=== PATIENT | male | born 1960 | race Caucasian/White ===

== ENCOUNTER 2020-04-16 16:04 | Emergency (ER) | payer OTHER ==
[~2020-04-16] VITALS: Ht 175.3 cm; Wt 122.0 kg
--- NOTE | 2020-04-16 16:28 | NUR ---
First contact with pt. Pt c/o body aches, cough, GROVER x2 days. Pt speaking in full sentences, resp even and unlabored. Pt placed in gown, positioned for comfort in bed. Continuous heart, oxygen and BP monitors applied, all safety measures observed.
[2020-04-16] MEDS ORDERED: ACETAMINOPHEN 500 MG TABLET PO ONE (16:30)
[2020-04-16] MEDS ORDERED: LISI40TA PO (16:31)
[2020-04-16] MEDS ORDERED: HYDR25TA6 PO (16:31)
[2020-04-16] MEDS ORDERED: ACETAMINOPHEN 500 MG TABLET ONE (16:32)
--- NOTE | 2020-04-16 16:54 | NUR ---
Pt provided water to drink, denies other needs.
[2020-04-16 17:05] LABS: BASOPHILS % (AUTO) 0 % (0-1); EOSINOPHILS # (AUTO) 0.03 x10^3/uL (0-0.4); EOSINOPHILS % (AUTO) 0 % (1-7); LYMPHOCYTES # (AUTO) 0.69 x10^3/uL (1-3.4); LYMPHOCYTES % (AUTO) 9 % (22-44); MD NO; MEAN CORPUSCULAR HGB CONC 32.3 g/dL (33.2-36.2); MEAN CORPUSCULAR VOLUME 83.7 fL (81-97); MEAN PLATELET VOLUME 10.6 fL (7.4-10.4); MONOCYTES # (AUTO) 0.23 x10^3/uL (0.2-0.8); MONOCYTES % (AUTO) 3 % (2-9); NEUTROPHILS # (AUTO) 6.71 x10^3/uL (1.8-6.8); NEUTROPHILS % (AUTO) 88 % (42-75); PLATELET COUNT 158 x10^3/uL (130-400); RED BLOOD COUNT 5.84 x10^6/uL (4.38-5.82); RED CELL DISTRIBUTION WIDTH 16.4 % (9.4-14.8)
[2020-04-16 17:15] LABS: ANION GAP 7 mmol/L (5-15); CALCIUM 8.7 mg/dL (8.5-10.1); CHLORIDE 104 mmol/L (98-107); CREATININE 1.41 mg/dL (0.7-1.3)
[2020-04-16 17:43] VITALS: BP 113/54
--- NOTE | 2020-04-16 17:43 | NUR ---
Pt reports he is feeling much better after Tylenol. Pt rates pain 2/10. Pt educated on alternating Tylenol and Motrin for fever and pain control. Pt verbalizes understanding.
--- NOTE | 2020-04-16 18:44 | NUR ---
Patient/Caregiver given discharge instructions and they have confirmed that they understand the instructions. Patient ambulatory with steady gait.
== END 2020-04-16 18:45 | disposition home or self-care (01) ==
LOC: ED 18:40
DX: J06.9 Acute upper respiratory infection, unspecified (principal); R06.00 Dyspnea, unspecified; R94.31 Abnormal electrocardiogram [ECG] [EKG]
CPT/HCPCS: 36415; 71045; 80048; 85025; 93005; 99285

== ENCOUNTER 2020-04-20 13:17 | Inpatient (IN) | payer OTHER ==
[~2020-04-20] VITALS: Ht 175.3 cm; Wt 126.1 kg
[~2020-04-20 13:17] MED LIST: HYDR25TA6 PO; LISI40TA PO
--- NOTE | 2020-04-20 13:26 | NUR ---
THIS IS A 59 YEAR OLD MALE CAME BACK IN FOR SOB, RESP ISSUES, FEVER AND CHILLS. FEVER ON AND OFF FOR 4 DAYS, SAT DECREASED 83%, RA. PT PLACED ON ECONOMICS LECTURER SINUS, SP02 AT 86%,. PLACED ON OXYGEN AT 2LNC UP TO 98%, AND CYCLE VS.
--- NOTE | 2020-04-20 14:25 | NUR ---
REPORT TO AMAURY GARCIA, PLAN OF CARE DISCUSSED
[2020-04-20] MEDS ORDERED: SODIUM CHLORIDE FLUSH 10ML SYR IVF ONE (14:30)
[2020-04-20] MEDS ORDERED: SODIUM CHLORIDE 0.9% 1,000ML IVBOLUS ONE (14:30)
[2020-04-20 14:33] LABS: BASOPHILS # (AUTO) 0.01 x10^3/uL (0-0.1); BASOPHILS % (AUTO) 0 % (0-1); EOSINOPHILS % (AUTO) 0 % (1-7); LYMPHOCYTES # (AUTO) 1.13 x10^3/uL (1-3.4); LYMPHOCYTES % (AUTO) 22 % (22-44); MD NO; MEAN CORPUSCULAR HEMOGLOBIN 26.9 pg (27.5-34.5); MEAN CORPUSCULAR HGB CONC 31.5 g/dL (33.2-36.2); MEAN CORPUSCULAR VOLUME 85.4 fL (81-97); MEAN PLATELET VOLUME 10.9 fL (7.4-10.4); MONOCYTES # (AUTO) 0.39 x10^3/uL (0.2-0.8); MONOCYTES % (AUTO) 8 % (2-9); NEUTROPHILS # (AUTO) 3.66 x10^3/uL (1.8-6.8); NEUTROPHILS % (AUTO) 71 % (42-75); PLATELET COUNT 139 x10^3/uL (130-400); RED BLOOD COUNT 6.14 x10^6/uL (4.38-5.82); RED CELL DISTRIBUTION WIDTH 17.3 % (9.4-14.8)
[2020-04-20 14:45] LABS: ALBUMIN 3.6 g/dL (3.4-5.0); ANION GAP 4 mmol/L (5-15); CALCIUM 9.1 mg/dL (8.5-10.1); CHLORIDE 104 mmol/L (98-107)
[2020-04-20] MEDS ORDERED: CEFTRIAXONE PMX 1GM/50ML 50 ML ONE (16:14)
[2020-04-20] MEDS ORDERED: ONDANSETRON 2MG/ML, 2ML IVPush PRN (16:30)
[2020-04-20] MEDS ORDERED: TEMAZEPAM 15 MG CAPSULE PO PRN (16:30)
[2020-04-20] MEDS ORDERED: ENOXAPARIN 40 MG/0.4 ML SQ SCH (16:30)
[2020-04-20] MEDS ORDERED: LABETALOL 5MG/ML, 20ML IVPush PRN (16:30)
[2020-04-20] MEDS ORDERED: CEFTRIAXONE PMX 2GM/50ML 50 ML IV SCH (16:30)
[2020-04-20] MEDS ORDERED: ONDANSETRON ODT 4 MG PO PRN (16:30)
[2020-04-20] MEDS ORDERED: ACETAMINOPHEN 325 MG TABLET PO PRN (16:30)
--- NOTE | 2020-04-20 16:40 | NUR ---
walked pt back and took pts ekg and vitals.
[2020-04-20 16:54] LABS: C-REACTIVE PROTEIN, QUANT 2.2 mg/dL (0.02-0.49)
[2020-04-20] MEDS ORDERED: AZITHROMYCIN 500 MG in SODIUM CHLORIDE 0.9% 250 ML IV ONE (17:00)
[2020-04-20] MEDS: AZITHROMYCIN 500 MG in SODIUM CHLORIDE 0.9% 250 ML IV SCH (17:12)
[2020-04-20] MEDS ORDERED: ENOXAPARIN 40 MG/0.4 ML ONE (17:27)
[2020-04-20] MEDS ORDERED: CEFTRIAXONE PMX 1GM/50ML 50 ML IV ONE ×2 (18:00→19:45)
[2020-04-20] MEDS ORDERED: ENOXAPARIN 80 MG/0.8 ML SQ ONE (19:15)
[2020-04-20] MEDS ORDERED: [UNRECOGNIZED DRUG - REMARK] XX ONE (19:45)
[2020-04-20] MEDS: ASCORBATE SODIUM 3,000 MG in SODIUM CHLORIDE 0.9% 250 ML IVPB SCH (20:28)
[2020-04-20] MEDS: MELATONIN 5 MG TABLET PO SCH (20:31)
[2020-04-20 20:35] VITALS: BP 144/82
[2020-04-20 22:24] LABS: TROPONIN I 0.071 ng/mL (0.000-0.045)
[2020-04-20] MEDS ORDERED: GUAIFENESIN/COD200MG-20MG/10ML LIQUID PO PRN (23:30)
[2020-04-21 00:20] VITALS: BP 146/84
[2020-04-21] MEDS: ASCORBATE SODIUM 3,000 MG in SODIUM CHLORIDE 0.9% 250 ML IVPB SCH ×4 (02:10→21:49)
[2020-04-21 05:42] LABS: BASOPHILS # (AUTO) 0.01 x10^3/uL (0-0.1); BASOPHILS % (AUTO) 0 % (0-1); EOSINOPHILS # (AUTO) 0.02 x10^3/uL (0-0.4); EOSINOPHILS % (AUTO) 1 % (1-7); LYMPHOCYTES # (AUTO) 1.38 x10^3/uL (1-3.4); LYMPHOCYTES % (AUTO) 33 % (22-44); MD NO; MEAN CORPUSCULAR HEMOGLOBIN 27.3 pg (27.5-34.5); MEAN CORPUSCULAR HGB CONC 32.4 g/dL (33.2-36.2); MEAN CORPUSCULAR VOLUME 84.2 fL (81-97); MEAN PLATELET VOLUME 10.6 fL (7.4-10.4); MONOCYTES # (AUTO) 0.29 x10^3/uL (0.2-0.8); MONOCYTES % (AUTO) 7 % (2-9); NEUTROPHILS % (AUTO) 59 % (42-75); PLATELET COUNT 125 x10^3/uL (130-400); RED BLOOD COUNT 5.56 x10^6/uL (4.38-5.82); RED CELL DISTRIBUTION WIDTH 17.5 % (9.4-14.8)
[2020-04-21 05:52] LABS: ANION GAP 5 mmol/L (5-15); CALCIUM 8.4 mg/dL (8.5-10.1); CHLORIDE 104 mmol/L (98-107)
[2020-04-21 05:56] LABS: CREATININE 1.27 mg/dL (0.7-1.3); TROPONIN I 0.056 ng/mL (0.000-0.045)
[2020-04-21 08:23] VITALS: BP 115/61
[2020-04-21] MEDS ORDERED: DEXAMETHASONE 4 MG TABLET ONE (08:45)
[2020-04-21] MEDS: DEXAMETHASONE 1 MG TABLET PO SCH (09:00)
[2020-04-21] MEDS: CHOLECALCIFEROL 1,000 UNIT TABLET PO SCH (09:17)
[2020-04-21] MEDS: ENOXAPARIN 120MG/0.8ML SQ SCH ×2 (09:18→20:12)
[2020-04-21] MEDS: HYDROCHLOROTHIAZIDE 25 MG TABLET PO SCH (09:18)
[2020-04-21] MEDS: ZINC SULFATE 220 MG CAPSULE PO SCH (09:18)
[2020-04-21] MEDS: LISINOPRIL 40 MG TABLET PO SCH (09:18)
[2020-04-21] MEDS: POTASSIUM CHLORIDE 20 MEQ TAB.ER.PRT PO SCH (09:18)
[2020-04-21 09:21] LABS: ALBUMIN 3.3 g/dL (3.4-5.0); BILIRUBIN, DIRECT 0.1 mg/dL (0.1-0.2)
[2020-04-21 09:22] LABS: BILIRUBIN,INDIRECT 0.2 mg/dL (0.0-2.0); BILIRUBIN,TOTAL 0.3 mg/dL (0.2-1.0)
[2020-04-21] MEDS ORDERED: INSTRUCTION SEE COMMENTS XX ONE (10:00)
[2020-04-21] MEDS ORDERED: REMDESIVIR 200 MG in SODIUM CHLORIDE 0.9% 250 ML IVPB ONE (10:30)
[2020-04-21 12:13] VITALS: BP 146/84
[2020-04-21] MEDS: CEFTRIAXONE PMX 2GM/50ML 50 ML IV SCH (18:42)
[2020-04-21 19:09] VITALS: BP 155/88
[2020-04-21] MEDS: MELATONIN 5 MG TABLET PO SCH (20:12)
[2020-04-21] MEDS: AZITHROMYCIN 500 MG in SODIUM CHLORIDE 0.9% 250 ML IV SCH (20:12)
[2020-04-22 02:00] VITALS: BP 158/86
[2020-04-22] MEDS: ASCORBATE SODIUM 3,000 MG in SODIUM CHLORIDE 0.9% 250 ML IVPB SCH ×3 (02:25→20:21)
[2020-04-22 04:12] VITALS: BP 158/86
[2020-04-22 05:12] LABS: ALBUMIN 3.2 g/dL (3.4-5.0); CALCIUM 8.5 mg/dL (8.5-10.1); CHLORIDE 105 mmol/L (98-107)
[2020-04-22 05:18] LABS: ALANINE AMINOTRANSFERASE 162 U/L (12-78); ALKALINE PHOSPHATASE 50 U/L (45-117); ANION GAP 6 mmol/L (5-15); BILIRUBIN,TOTAL 0.3 mg/dL (0.2-1.0); CREATININE 1.13 mg/dL (0.7-1.3); TOTAL PROTEIN 6.9 g/dL (6.4-8.2)
[2020-04-22 08:39] VITALS: BP 151/88
[2020-04-22] MEDS: CHOLECALCIFEROL 1,000 UNIT TABLET PO SCH (08:46)
[2020-04-22] MEDS: HYDROCHLOROTHIAZIDE 25 MG TABLET PO SCH (08:46)
[2020-04-22] MEDS: ENOXAPARIN 120MG/0.8ML SQ SCH ×2 (08:46→20:22)
[2020-04-22] MEDS: POTASSIUM CHLORIDE 20 MEQ TAB.ER.PRT PO SCH (08:46)
[2020-04-22] MEDS: ZINC SULFATE 220 MG CAPSULE PO SCH (08:46)
[2020-04-22] MEDS: DEXAMETHASONE 1 MG TABLET PO SCH (08:47)
[2020-04-22] MEDS: LISINOPRIL 40 MG TABLET PO SCH (08:56)
[2020-04-22 15:20] VITALS: BP 151/81
[2020-04-22] MEDS: REMDESIVIR 100 MG in SODIUM CHLORIDE 0.9% 250 ML IVPB SCH (15:56)
[2020-04-22] MEDS: CEFTRIAXONE PMX 2GM/50ML 50 ML IV SCH (18:04)
[2020-04-22 18:34] VITALS: BP 144/81
[2020-04-22] MEDS: AZITHROMYCIN 500 MG in SODIUM CHLORIDE 0.9% 250 ML IV SCH (18:39)
[2020-04-22] MEDS: MELATONIN 5 MG TABLET PO SCH (20:21)
[2020-04-23 00:27] VITALS: BP 143/78
[2020-04-23] MEDS: ASCORBATE SODIUM 3,000 MG in SODIUM CHLORIDE 0.9% 250 ML IVPB SCH ×3 (02:26→20:54)
[2020-04-23 05:40] LABS: ALANINE AMINOTRANSFERASE 193 U/L (12-78); ANION GAP 5 mmol/L (5-15); CALCIUM 8.6 mg/dL (8.5-10.1); CHLORIDE 106 mmol/L (98-107); CREATININE 1.15 mg/dL (0.7-1.3)
[2020-04-23 05:43] LABS: ALKALINE PHOSPHATASE 49 U/L (45-117); BILIRUBIN,TOTAL 0.2 mg/dL (0.2-1.0); TOTAL PROTEIN 6.7 g/dL (6.4-8.2)
[2020-04-23 09:50] VITALS: BP 153/87
[2020-04-23] MEDS: ENOXAPARIN 120MG/0.8ML SQ SCH ×2 (09:53→20:03)
[2020-04-23] MEDS: POTASSIUM CHLORIDE 20 MEQ TAB.ER.PRT PO SCH (09:53)
[2020-04-23] MEDS: HYDROCHLOROTHIAZIDE 25 MG TABLET PO SCH (09:53)
[2020-04-23] MEDS: DEXAMETHASONE 1 MG TABLET PO SCH (09:53)
[2020-04-23] MEDS: LISINOPRIL 40 MG TABLET PO SCH (09:54)
[2020-04-23] MEDS: CHOLECALCIFEROL 1,000 UNIT TABLET PO SCH (09:54)
[2020-04-23] MEDS: ZINC SULFATE 220 MG CAPSULE PO SCH (09:54)
[2020-04-23 12:32] VITALS: BP 135/73
[2020-04-23] MEDS: REMDESIVIR 100 MG in SODIUM CHLORIDE 0.9% 250 ML IVPB SCH (17:26)
[2020-04-23 19:12] VITALS: BP 151/83
[2020-04-23] MEDS: THIAMINE 100MG TABLET PO SCH (20:03)
[2020-04-23] MEDS: MELATONIN 5 MG TABLET PO SCH (20:03)
[2020-04-23] MEDS: CEFTRIAXONE PMX 2GM/50ML 50 ML IV SCH (20:05)
[2020-04-23 22:13] VITALS: BP 150/87
[2020-04-23] MEDS: AZITHROMYCIN 500 MG in SODIUM CHLORIDE 0.9% 250 ML IV SCH (23:12)
[2020-04-24] MEDS: ASCORBATE SODIUM 3,000 MG in SODIUM CHLORIDE 0.9% 250 ML IVPB SCH ×4 (03:03→21:24)
[2020-04-24 03:08] VITALS: BP 143/73
[2020-04-24 05:01] LABS: BASOPHILS # (AUTO) 0.02 x10^3/uL (0-0.1); BASOPHILS % (AUTO) 0 % (0-1); EOSINOPHILS # (AUTO) 0.02 x10^3/uL (0-0.4); EOSINOPHILS % (AUTO) 0 % (1-7); LYMPHOCYTES # (AUTO) 1.09 x10^3/uL (1-3.4); LYMPHOCYTES % (AUTO) 13 % (22-44); MD NO; MEAN CORPUSCULAR HEMOGLOBIN 27.4 pg (27.5-34.5); MEAN CORPUSCULAR HGB CONC 32.5 g/dL (33.2-36.2); MEAN CORPUSCULAR VOLUME 84.4 fL (81-97); MEAN PLATELET VOLUME 11.3 fL (7.4-10.4); MONOCYTES # (AUTO) 0.64 x10^3/uL (0.2-0.8); MONOCYTES % (AUTO) 8 % (2-9); NEUTROPHILS # (AUTO) 6.65 x10^3/uL (1.8-6.8); NEUTROPHILS % (AUTO) 79 % (42-75); PLATELET COUNT 155 x10^3/uL (130-400); RED BLOOD COUNT 5.76 x10^6/uL (4.38-5.82); RED CELL DISTRIBUTION WIDTH 16.7 % (9.4-14.8)
[2020-04-24 05:08] LABS: INTERNATIONAL NORMALIZED RATIO 1.12 (0.93-1.1); PROTHROMBIN TIME 11.6 Seconds (9.6-11.5)
[2020-04-24 05:14] LABS: ALANINE AMINOTRANSFERASE 188 U/L (12-78); ANION GAP 5 mmol/L (5-15); CALCIUM 7.8 mg/dL (8.5-10.1); CHLORIDE 106 mmol/L (98-107)
[2020-04-24 05:19] LABS: ALKALINE PHOSPHATASE 45 U/L (45-117); BILIRUBIN,TOTAL 0.3 mg/dL (0.2-1.0); CREATININE 1.05 mg/dL (0.7-1.3); TOTAL PROTEIN 6.5 g/dL (6.4-8.2); TROPONIN I < 0.015 ng/mL (0.000-0.045)
[2020-04-24 07:10] VITALS: BP 148/75
[2020-04-24] MEDS: ENOXAPARIN 120MG/0.8ML SQ SCH ×2 (09:29→20:45)
[2020-04-24] MEDS: CHOLECALCIFEROL 5,000u TAB PO SCH (09:29)
[2020-04-24] MEDS: ZINC SULFATE 220 MG CAPSULE PO SCH (09:29)
[2020-04-24] MEDS: DEXAMETHASONE 1 MG TABLET PO SCH (09:30)
[2020-04-24] MEDS: THIAMINE 100MG TABLET PO SCH ×2 (09:30→20:45)
[2020-04-24] MEDS: LISINOPRIL 40 MG TABLET PO SCH (09:30)
[2020-04-24] MEDS: HYDROCHLOROTHIAZIDE 25 MG TABLET PO SCH (09:30)
[2020-04-24 13:51] VITALS: BP 156/78
[2020-04-24] MEDS: REMDESIVIR 100 MG in SODIUM CHLORIDE 0.9% 250 ML IVPB SCH (18:32)
[2020-04-24 18:38] VITALS: BP 153/83
[2020-04-24] MEDS: CEFTRIAXONE PMX 2GM/50ML 50 ML IV SCH (20:43)
[2020-04-24] MEDS: MELATONIN 5 MG TABLET PO SCH (20:45)
[2020-04-24] MEDS: AZITHROMYCIN 500 MG in SODIUM CHLORIDE 0.9% 250 ML IV SCH (23:25)
[2020-04-25 00:45] VITALS: BP 148/78
[2020-04-25] MEDS: ASCORBATE SODIUM 3,000 MG in SODIUM CHLORIDE 0.9% 250 ML IVPB SCH ×3 (03:03→21:01)
[2020-04-25 05:20] LABS: MEAN CORPUSCULAR HEMOGLOBIN 27.1 pg (27.5-34.5); MEAN CORPUSCULAR VOLUME 84.8 fL (81-97); MEAN PLATELET VOLUME 11.9 fL (7.4-10.4); PLATELET COUNT 170 x10^3/uL (130-400); RED CELL DISTRIBUTION WIDTH 16.3 % (9.4-14.8)
[2020-04-25 05:27] LABS: ALBUMIN 2.9 g/dL (3.4-5.0); ANION GAP 3 mmol/L (5-15); CALCIUM 7.9 mg/dL (8.5-10.1); CHLORIDE 106 mmol/L (98-107)
[2020-04-25 05:31] LABS: ALANINE AMINOTRANSFERASE 252 U/L (12-78); ALKALINE PHOSPHATASE 46 U/L (45-117); BILIRUBIN,TOTAL 0.3 mg/dL (0.2-1.0); CREATININE 1.19 mg/dL (0.7-1.3); TOTAL PROTEIN 6.3 g/dL (6.4-8.2)
[2020-04-25 06:28] LABS: BASOPHILS # (AUTO) 0.04 x10^3/uL (0-0.1); BASOPHILS % (AUTO) 0 % (0-1); EOSINOPHILS # (AUTO) 0.07 x10^3/uL (0-0.4); EOSINOPHILS % (AUTO) 1 % (1-7); LYMPHOCYTES # (AUTO) 1.23 x10^3/uL (1-3.4); LYMPHOCYTES % (AUTO) 13 % (22-44); MD SCAN; MONOCYTES # (AUTO) 0.76 x10^3/uL (0.2-0.8); MONOCYTES % (AUTO) 8 % (2-9); NEUTROPHILS % (AUTO) 78 % (42-75)
[2020-04-25 07:16] VITALS: BP 160/8
[2020-04-25 08:04] VITALS: BP 158/81
[2020-04-25] MEDS: LISINOPRIL 40 MG TABLET PO SCH (08:09)
[2020-04-25] MEDS: DEXAMETHASONE 1 MG TABLET PO SCH (08:09)
[2020-04-25] MEDS: HYDROCHLOROTHIAZIDE 25 MG TABLET PO SCH (08:09)
[2020-04-25] MEDS: ENOXAPARIN 120MG/0.8ML SQ SCH ×2 (08:09→21:01)
[2020-04-25] MEDS: CHOLECALCIFEROL 5,000u TAB PO SCH (08:10)
[2020-04-25] MEDS: ZINC SULFATE 220 MG CAPSULE PO SCH (08:10)
[2020-04-25] MEDS: THIAMINE 100MG TABLET PO SCH ×2 (08:10→21:02)
[2020-04-25 13:48] VITALS: BP 169/94
[2020-04-25] MEDS: REMDESIVIR 100 MG in SODIUM CHLORIDE 0.9% 250 ML IVPB SCH (18:09)
[2020-04-25] MEDS: CEFTRIAXONE PMX 2GM/50ML 50 ML IV SCH (20:23)
[2020-04-25 20:28] VITALS: BP 161/78
[2020-04-25] MEDS: MELATONIN 5 MG TABLET PO SCH (21:01)
[2020-04-25] MEDS: AZITHROMYCIN 500 MG in SODIUM CHLORIDE 0.9% 250 ML IV SCH (23:04)
[2020-04-26] VITALS (8 sets, daily range): BP systolic 137–185; BP diastolic 69–94
[2020-04-26] MEDS: ASCORBATE SODIUM 3,000 MG in SODIUM CHLORIDE 0.9% 250 ML IVPB SCH ×3 (02:49→18:03)
[2020-04-26 06:16] LABS: BASOPHILS # (AUTO) 0.01 x10^3/uL (0-0.1); BASOPHILS % (AUTO) 0 % (0-1); EOSINOPHILS # (AUTO) 0.01 x10^3/uL (0-0.4); EOSINOPHILS % (AUTO) 0 % (1-7); LYMPHOCYTES # (AUTO) 1.49 x10^3/uL (1-3.4); LYMPHOCYTES % (AUTO) 13 % (22-44); MD NO; MEAN CORPUSCULAR HEMOGLOBIN 27.1 pg (27.5-34.5); MEAN CORPUSCULAR HGB CONC 32.2 g/dL (33.2-36.2); MEAN CORPUSCULAR VOLUME 84.4 fL (81-97); MEAN PLATELET VOLUME 11.6 fL (7.4-10.4); MONOCYTES # (AUTO) 0.88 x10^3/uL (0.2-0.8); MONOCYTES % (AUTO) 8 % (2-9); NEUTROPHILS # (AUTO) 9.27 x10^3/uL (1.8-6.8); NEUTROPHILS % (AUTO) 80 % (42-75); PLATELET COUNT 184 x10^3/uL (130-400); RED BLOOD COUNT 6.25 x10^6/uL (4.38-5.82)
[2020-04-26 06:25] LABS: ANION GAP 4 mmol/L (5-15); CALCIUM 8.3 mg/dL (8.5-10.1); CHLORIDE 105 mmol/L (98-107)
[2020-04-26 06:28] LABS: ALANINE AMINOTRANSFERASE 238 U/L (12-78); ALKALINE PHOSPHATASE 50 U/L (45-117); BILIRUBIN,TOTAL 0.4 mg/dL (0.2-1.0); CREATININE 1.17 mg/dL (0.7-1.3); TOTAL PROTEIN 6.6 g/dL (6.4-8.2)
[2020-04-26] MEDS: THIAMINE 100MG TABLET PO SCH ×2 (10:37→20:27)
[2020-04-26] MEDS: DEXAMETHASONE 1 MG TABLET PO SCH (10:38)
[2020-04-26] MEDS: ENOXAPARIN 120MG/0.8ML SQ SCH ×2 (10:38→22:32)
[2020-04-26] MEDS: ZINC SULFATE 220 MG CAPSULE PO SCH (10:39)
[2020-04-26] MEDS: CHOLECALCIFEROL 5,000u TAB PO SCH (10:39)
[2020-04-26] MEDS: HYDROCHLOROTHIAZIDE 25 MG TABLET PO SCH (10:39)
[2020-04-26] MEDS: LISINOPRIL 40 MG TABLET PO SCH (10:39)
[2020-04-26] MEDS: hydrALAzine 20 MG/ML, 1ML IVPush PRN (14:20)
[2020-04-26] MEDS: ASCORBIC ACID 500 MG TABLET PO SCH (20:27)
[2020-04-26] MEDS: AMLODIPINE 5 MG TABLET PO SCH (20:27)
[2020-04-26] MEDS: MELATONIN 5 MG TABLET PO SCH (20:27)
[2020-04-26] MEDS: CEFTRIAXONE PMX 2GM/50ML 50 ML IV SCH (20:27)
[2020-04-26] MEDS: AZITHROMYCIN 500 MG in SODIUM CHLORIDE 0.9% 250 ML IV SCH (22:32)
[2020-04-27 00:50] VITALS: BP 158/83
[2020-04-27 06:01] LABS: INTERNATIONAL NORMALIZED RATIO 1.18 (0.93-1.1); MEAN CORPUSCULAR HEMOGLOBIN 26.6 pg (27.5-34.5); MEAN CORPUSCULAR HGB CONC 31.2 g/dL (33.2-36.2); MEAN CORPUSCULAR VOLUME 85.4 fL (81-97); MEAN PLATELET VOLUME 10.9 fL (7.4-10.4); PLATELET COUNT 212 x10^3/uL (130-400); PROTHROMBIN TIME 12.2 Seconds (9.6-11.5); RED BLOOD COUNT 6.31 x10^6/uL (4.38-5.82); RED CELL DISTRIBUTION WIDTH 16.7 % (9.4-14.8)
[2020-04-27 06:08] LABS: ANION GAP 4 mmol/L (5-15); CALCIUM 8.6 mg/dL (8.5-10.1); CHLORIDE 106 mmol/L (98-107); CREATININE 1.08 mg/dL (0.7-1.3)
[2020-04-27 06:35] LABS: MD YES
[2020-04-27 06:37] LABS: LYMPH#(MANUAL) 1.48 x10^3/uL (1-3.4); LYMPHS% (MANUAL) 12 % (22-44); MONOS#(MANUAL) 1.11 x10^3/uL (0.3-2.7); MONOS% (MANUAL) 9 % (2-9); SEG#(MANUAL) 9.72 x10^3/uL (1.8-6.8); SEGS% (MANUAL) 79 % (42-75)
[2020-04-27 06:38] LABS: <PLATELET ESTIMATE> ADEQUATE; <PLT MORPHOLOGY> NORMAL PLT MORPH; <RBC MORPHOLOGY> NORMAL
[2020-04-27 07:50] VITALS: BP 176/103
[2020-04-27] MEDS: ASCORBIC ACID 500 MG TABLET PO SCH ×3 (08:53→16:18)
[2020-04-27] MEDS: HYDROCHLOROTHIAZIDE 25 MG TABLET PO SCH (08:54)
[2020-04-27] MEDS: ZINC SULFATE 220 MG CAPSULE PO SCH (08:54)
[2020-04-27] MEDS: LISINOPRIL 40 MG TABLET PO SCH (08:54)
[2020-04-27] MEDS: CHOLECALCIFEROL 5,000u TAB PO SCH (08:54)
[2020-04-27] MEDS: THIAMINE 100MG TABLET PO SCH ×2 (08:54→20:31)
[2020-04-27] MEDS: AMLODIPINE 5 MG TABLET PO SCH (08:54)
[2020-04-27] MEDS: DEXAMETHASONE 1 MG TABLET PO SCH (08:55)
[2020-04-27 10:04] VITALS: BP 176/83
[2020-04-27] MEDS: hydrALAzine 20 MG/ML, 1ML IVPush PRN (10:18)
[2020-04-27] MEDS: ENOXAPARIN 120MG/0.8ML SQ SCH ×2 (10:18→22:42)
[2020-04-27 14:01] VITALS: BP 150/85
[2020-04-27 19:46] VITALS: BP 152/78
[2020-04-27] MEDS: CEFTRIAXONE PMX 2GM/50ML 50 ML IV SCH (20:30)
[2020-04-27] MEDS: MELATONIN 5 MG TABLET PO SCH (20:30)
[2020-04-27] MEDS ORDERED: LISINOPRIL 20 MG TABLET PO SCH (21:00)
[2020-04-27] MEDS: AZITHROMYCIN 500 MG in SODIUM CHLORIDE 0.9% 250 ML IV SCH (22:43)
[2020-04-28 00:08] VITALS: BP 146/79
[2020-04-28 06:11] LABS: MEAN CORPUSCULAR HEMOGLOBIN 26.8 pg (27.5-34.5); MEAN CORPUSCULAR HGB CONC 31.5 g/dL (33.2-36.2); MEAN CORPUSCULAR VOLUME 85.1 fL (81-97); MEAN PLATELET VOLUME 11.4 fL (7.4-10.4); PLATELET COUNT 214 x10^3/uL (130-400); RED BLOOD COUNT 6.19 x10^6/uL (4.38-5.82); RED CELL DISTRIBUTION WIDTH 17.3 % (9.4-14.8)
[2020-04-28 06:13] LABS: ANION GAP 5 mmol/L (5-15); CALCIUM 8.7 mg/dL (8.5-10.1); CHLORIDE 106 mmol/L (98-107); CREATININE 1.08 mg/dL (0.7-1.3)
[2020-04-28 06:34] VITALS: BP 156/89
[2020-04-28 06:50] LABS: BASOPHILS # (AUTO) 0.02 x10^3/uL (0-0.1); BASOPHILS % (AUTO) 0 % (0-1); EOSINOPHILS % (AUTO) 0 % (1-7); LYMPHOCYTES # (AUTO) 1.15 x10^3/uL (1-3.4); LYMPHOCYTES % (AUTO) 9 % (22-44); MD SCAN; MONOCYTES # (AUTO) 0.89 x10^3/uL (0.2-0.8); MONOCYTES % (AUTO) 7 % (2-9); NEUTROPHILS # (AUTO) 11.32 x10^3/uL (1.8-6.8); NEUTROPHILS % (AUTO) 85 % (42-75)
[2020-04-28] MEDS: THIAMINE 100MG TABLET PO SCH ×2 (09:00→21:54)
[2020-04-28] MEDS ORDERED: ASCORBIC ACID 250 MG TAB ONE (10:17)
[2020-04-28] MEDS: ASCORBIC ACID 500 MG TABLET PO SCH ×3 (10:38→18:05)
[2020-04-28] MEDS: DEXAMETHASONE 1 MG TABLET PO SCH (10:38)
[2020-04-28] MEDS: CHOLECALCIFEROL 5,000u TAB PO SCH (10:38)
[2020-04-28] MEDS: LISINOPRIL 40 MG TABLET PO SCH (10:39)
[2020-04-28] MEDS: ZINC SULFATE 220 MG CAPSULE PO SCH (10:40)
[2020-04-28] MEDS: HYDROCHLOROTHIAZIDE 25 MG TABLET PO SCH (10:40)
[2020-04-28] MEDS: AMLODIPINE 5 MG TABLET PO SCH (10:40)
[2020-04-28] MEDS: ENOXAPARIN 120MG/0.8ML SQ SCH ×2 (10:41→23:24)
[2020-04-28 14:29] VITALS: BP 138/74
[2020-04-28 19:02] VITALS: BP 165/80
[2020-04-28] MEDS ORDERED: LISINOPRIL 20 MG TABLET PO SCH (21:00)
[2020-04-28] MEDS: MELATONIN 5 MG TABLET PO SCH (21:55)
[2020-04-28] MEDS: CEFTRIAXONE PMX 2GM/50ML 50 ML IV SCH (21:56)
[2020-04-28] MEDS: AZITHROMYCIN 500 MG in SODIUM CHLORIDE 0.9% 250 ML IV SCH (23:23)
[2020-04-29 01:22] VITALS: BP 142/74
[2020-04-29 07:08] VITALS: BP 150/75
[2020-04-29] MEDS: ASCORBIC ACID 500 MG TABLET PO SCH ×3 (09:12→16:58)
[2020-04-29] MEDS: CHOLECALCIFEROL 5,000u TAB PO SCH (09:13)
[2020-04-29] MEDS: DEXAMETHASONE 1 MG TABLET PO SCH (09:13)
[2020-04-29] MEDS: LISINOPRIL 40 MG TABLET PO SCH ×2 (09:13→22:02)
[2020-04-29] MEDS: AMLODIPINE 5 MG TABLET PO SCH (09:13)
[2020-04-29] MEDS: ZINC SULFATE 220 MG CAPSULE PO SCH (09:13)
[2020-04-29] MEDS: THIAMINE 100MG TABLET PO SCH ×2 (09:13→22:02)
[2020-04-29] MEDS: HYDROCHLOROTHIAZIDE 25 MG TABLET PO SCH (09:13)
[2020-04-29] MEDS: ENOXAPARIN 120MG/0.8ML SQ SCH ×2 (10:56→22:01)
[2020-04-29 11:45] VITALS: BP 163/80
[2020-04-29 11:58] VITALS: BP 163/80
[2020-04-29 12:00] VITALS: BP 163/80
[2020-04-29 18:30] VITALS: BP 151/84
[2020-04-29] MEDS: CEFTRIAXONE PMX 2GM/50ML 50 ML IV SCH (22:01)
[2020-04-29] MEDS: MELATONIN 5 MG TABLET PO SCH (22:02)
[2020-04-29] MEDS: AZITHROMYCIN 500 MG in SODIUM CHLORIDE 0.9% 250 ML IV SCH (23:41)
[2020-04-30 00:12] VITALS: BP 123/65
[2020-04-30 07:03] VITALS: BP 159/92
[2020-04-30] MEDS: ASCORBIC ACID 500 MG TABLET PO SCH ×3 (08:22→17:33)
[2020-04-30] MEDS: DEXAMETHASONE 1 MG TABLET PO SCH (08:22)
[2020-04-30] MEDS: ZINC SULFATE 220 MG CAPSULE PO SCH (08:22)
[2020-04-30] MEDS: LISINOPRIL 40 MG TABLET PO SCH ×2 (08:22→20:12)
[2020-04-30] MEDS: HYDROCHLOROTHIAZIDE 25 MG TABLET PO SCH (08:22)
[2020-04-30] MEDS: CHOLECALCIFEROL 5,000u TAB PO SCH (08:22)
[2020-04-30] MEDS: THIAMINE 100MG TABLET PO SCH ×2 (08:22→20:12)
[2020-04-30] MEDS: AMLODIPINE 5 MG TABLET PO SCH (08:22)
[2020-04-30] MEDS: ENOXAPARIN 120MG/0.8ML SQ SCH ×2 (10:25→21:53)
[2020-04-30 12:38] VITALS: BP 147/67
[2020-04-30] MEDS ORDERED: ZINC220C7 PO (16:18)
[2020-04-30] MEDS ORDERED: MELA5TAB14 PO (16:18)
[2020-04-30] MEDS ORDERED: CHOL500045 PO (16:18)
[2020-04-30] MEDS ORDERED: THIA100T67 PO (16:18)
[2020-04-30] MEDS ORDERED: DEXA1TAB5 PO ×2 (16:18)
[2020-04-30] MEDS ORDERED: ASCO500T9 PO ×2 (16:18)
[2020-04-30] MEDS ORDERED: CEFD300C37 PO ×2 (16:23)
[2020-04-30 19:09] VITALS: BP 130/67
[2020-04-30] MEDS: MELATONIN 5 MG TABLET PO SCH (20:12)
[2020-04-30] MEDS: CEFTRIAXONE PMX 2GM/50ML 50 ML IV SCH (21:53)
[2020-04-30] MEDS: AZITHROMYCIN 500 MG in SODIUM CHLORIDE 0.9% 250 ML IV SCH (23:13)
[2020-05-01 01:28] VITALS: BP 148/72
[2020-05-01 07:00] VITALS: BP 123/84
[2020-05-01 07:51] LABS: D-DIMER 0.34 ug/mlFEU (0.00-0.52)
[2020-05-01 07:54] LABS: ALANINE AMINOTRANSFERASE 134 U/L (12-78); ALBUMIN 3.1 g/dL (3.4-5.0); ANION GAP 7 mmol/L (5-15); C-REACTIVE PROTEIN, QUANT 0.04 mg/dL (0.02-0.49); CHLORIDE 106 mmol/L (98-107); CREATININE 1.16 mg/dL (0.7-1.3)
[2020-05-01 07:55] LABS: MEAN CORPUSCULAR HEMOGLOBIN 27.1 pg (27.5-34.5); MEAN CORPUSCULAR HGB CONC 31.8 g/dL (33.2-36.2); MEAN CORPUSCULAR VOLUME 85.2 fL (81-97); MEAN PLATELET VOLUME 10.6 fL (7.4-10.4); PLATELET COUNT 259 x10^3/uL (130-400); RED CELL DISTRIBUTION WIDTH 17.1 % (9.4-14.8)
[2020-05-01 07:59] LABS: ALKALINE PHOSPHATASE 66 U/L (45-117); BILIRUBIN,TOTAL 0.3 mg/dL (0.2-1.0); TOTAL PROTEIN 6.4 g/dL (6.4-8.2)
[2020-05-01 08:18] LABS: MD YES
[2020-05-01 08:20] LABS: <PLATELET ESTIMATE> ADEQUATE; <PLT MORPHOLOGY> NORMAL PLT MORPH; ANISOCYTOSIS 1+; BANDS%(MANUAL) 1 % (0-7); LYMPHS% (MANUAL) 7 % (22-44); METAMYELOCYTES% (MANUAL) 1 % (0-1); MONOS% (MANUAL) 5 % (2-9); MYELOCYTES% (MANUAL) 1 % (0-0); SEGS% (MANUAL) 85 % (42-75)
[2020-05-01] MEDS: DEXAMETHASONE 1 MG TABLET PO SCH (09:32)
[2020-05-01] MEDS: AMLODIPINE 5 MG TABLET PO SCH (09:33)
[2020-05-01] MEDS: CHOLECALCIFEROL 5,000u TAB PO SCH (09:33)
[2020-05-01] MEDS: LISINOPRIL 40 MG TABLET PO SCH ×2 (09:33→19:46)
[2020-05-01] MEDS: ZINC SULFATE 220 MG CAPSULE PO SCH (09:33)
[2020-05-01] MEDS: ASCORBIC ACID 500 MG TABLET PO SCH ×3 (09:33→16:04)
[2020-05-01] MEDS: HYDROCHLOROTHIAZIDE 25 MG TABLET PO SCH (09:33)
[2020-05-01] MEDS: THIAMINE 100MG TABLET PO SCH (09:35)
[2020-05-01] MEDS: ENOXAPARIN 120MG/0.8ML SQ SCH (12:01)
[2020-05-01 12:05] VITALS: BP 143/60
[2020-05-01 19:25] VITALS: BP 135/69
[2020-05-01 19:41] VITALS: BP 163/77
[2020-05-01] MEDS: FAMOTIDINE 20 MG TABLET PO SCH (19:46)
[2020-05-01] MEDS: MELATONIN 5 MG TABLET PO SCH (21:34)
[2020-05-01 22:32] LABS: CLOSTRIDIUM DIFFICILE ANTIGEN NEGATIVE; CLOSTRIDIUM DIFFICILE TOXIN NEGATIVE (Negative)
[2020-05-02 00:55] VITALS: BP 148/73
[2020-05-02] MEDS: ENOXAPARIN 120MG/0.8ML SQ SCH ×2 (05:27→16:38)
[2020-05-02 06:01] LABS: CHLORIDE 104 mmol/L (98-107)
[2020-05-02 06:02] LABS: MEAN CORPUSCULAR HEMOGLOBIN 27.2 pg (27.5-34.5); MEAN CORPUSCULAR HGB CONC 32.2 g/dL (33.2-36.2); MEAN CORPUSCULAR VOLUME 84.5 fL (81-97); MEAN PLATELET VOLUME 10.2 fL (7.4-10.4); PLATELET COUNT 251 x10^3/uL (130-400); RED BLOOD COUNT 5.97 x10^6/uL (4.38-5.82); RED CELL DISTRIBUTION WIDTH 17.6 % (9.4-14.8)
[2020-05-02 06:06] LABS: ANION GAP 7 mmol/L (5-15); CALCIUM 8.3 mg/dL (8.5-10.1); CREATININE 1.13 mg/dL (0.7-1.3)
[2020-05-02 06:31] LABS: BASOPHILS # (AUTO) 0.05 x10^3/uL (0-0.1); BASOPHILS % (AUTO) 0 % (0-1); EOSINOPHILS # (AUTO) 0.01 x10^3/uL (0-0.4); EOSINOPHILS % (AUTO) 0 % (1-7); LYMPHOCYTES # (AUTO) 1.36 x10^3/uL (1-3.4); LYMPHOCYTES % (AUTO) 7 % (22-44); MD SCAN; MONOCYTES # (AUTO) 1.27 x10^3/uL (0.2-0.8); MONOCYTES % (AUTO) 7 % (2-9); NEUTROPHILS # (AUTO) 16.73 x10^3/uL (1.8-6.8); NEUTROPHILS % (AUTO) 86 % (42-75)
[2020-05-02 09:16] VITALS: BP 154/78
[2020-05-02] MEDS: DEXAMETHASONE 1 MG TABLET PO SCH (09:18)
[2020-05-02] MEDS: FAMOTIDINE 20 MG TABLET PO SCH ×2 (09:18→21:32)
[2020-05-02] MEDS: ZINC SULFATE 220 MG CAPSULE PO SCH (09:19)
[2020-05-02] MEDS: HYDROCHLOROTHIAZIDE 25 MG TABLET PO SCH (09:19)
[2020-05-02] MEDS: LISINOPRIL 40 MG TABLET PO SCH ×2 (09:19→21:32)
[2020-05-02] MEDS: THIAMINE 100MG TABLET PO SCH (09:19)
[2020-05-02] MEDS: CHOLECALCIFEROL 5,000u TAB PO SCH (09:19)
[2020-05-02 09:27] LABS: CRYPTOSPORIDIUM ANTIGEN Negative (Negative)
[2020-05-02 14:28] VITALS: BP 164/79
[2020-05-02 18:33] VITALS: BP 165/82
[2020-05-02] MEDS: MELATONIN 5 MG TABLET PO SCH (20:49)
[2020-05-02 21:30] VITALS: BP 141/71
[2020-05-02] MEDS: TRAZODONE 50MG TABLET PO PRN (21:32)
[2020-05-03 00:24] VITALS: BP 151/81
[2020-05-03 04:48] LABS: MEAN CORPUSCULAR HEMOGLOBIN 27.2 pg (27.5-34.5); MEAN CORPUSCULAR HGB CONC 31.7 g/dL (33.2-36.2); MEAN CORPUSCULAR VOLUME 85.7 fL (81-97); PLATELET COUNT 235 x10^3/uL (130-400); RED BLOOD COUNT 5.91 x10^6/uL (4.38-5.82); RED CELL DISTRIBUTION WIDTH 17.1 % (9.4-14.8)
[2020-05-03] MEDS: ENOXAPARIN 120MG/0.8ML SQ SCH ×2 (05:28→16:33)
[2020-05-03 06:42] LABS: BASOPHILS # (AUTO) 0.07 x10^3/uL (0-0.1); BASOPHILS % (AUTO) 0 % (0-1); EOSINOPHILS % (AUTO) 0 % (1-7); LYMPHOCYTES # (AUTO) 1.36 x10^3/uL (1-3.4); LYMPHOCYTES % (AUTO) 8 % (22-44); MD SCAN; MONOCYTES # (AUTO) 1.15 x10^3/uL (0.2-0.8); MONOCYTES % (AUTO) 6 % (2-9); NEUTROPHILS # (AUTO) 15.62 x10^3/uL (1.8-6.8); NEUTROPHILS % (AUTO) 86 % (42-75)
[2020-05-03 06:43] VITALS: BP 149/71
[2020-05-03] MEDS: FAMOTIDINE 20 MG TABLET PO SCH ×2 (08:12→20:20)
[2020-05-03] MEDS: THIAMINE 100MG TABLET PO SCH (08:12)
[2020-05-03] MEDS: HYDROCHLOROTHIAZIDE 25 MG TABLET PO SCH (08:12)
[2020-05-03] MEDS: CHOLECALCIFEROL 5,000u TAB PO SCH (08:12)
[2020-05-03] MEDS: LISINOPRIL 40 MG TABLET PO SCH ×2 (08:12→20:19)
[2020-05-03] MEDS: ZINC SULFATE 220 MG CAPSULE PO SCH (08:12)
[2020-05-03] MEDS: AMLODIPINE 10 MG TAB PO SCH (08:13)
[2020-05-03] MEDS ORDERED: DEXAMETHASONE 1 MG TABLET PO SCH (09:00)
[2020-05-03] MEDS ORDERED: LOPERAMIDE 2 MG CAPSULE PO PRN ×2 (09:30→12:00)
[2020-05-03 12:38] VITALS: BP 140/70
[2020-05-03] MEDS: MELATONIN 5 MG TABLET PO SCH (18:49)
[2020-05-03 20:14] VITALS: BP 131/74
[2020-05-03] MEDS: TRAZODONE 50MG TABLET PO PRN (21:58)
[2020-05-04 00:04] VITALS: BP 144/82
[2020-05-04] MEDS: ENOXAPARIN 120MG/0.8ML SQ SCH ×2 (05:27→16:25)
[2020-05-04 05:56] LABS: ANION GAP 9 mmol/L (5-15); CALCIUM 8.2 mg/dL (8.5-10.1); CHLORIDE 101 mmol/L (98-107)
[2020-05-04 05:57] LABS: MEAN CORPUSCULAR HEMOGLOBIN 27.5 pg (27.5-34.5); MEAN CORPUSCULAR HGB CONC 32.3 g/dL (33.2-36.2); MEAN CORPUSCULAR VOLUME 85.2 fL (81-97); PLATELET COUNT 244 x10^3/uL (130-400); RED CELL DISTRIBUTION WIDTH 18.1 % (9.4-14.8)
[2020-05-04 05:59] LABS: ALANINE AMINOTRANSFERASE 149 U/L (12-78); ALKALINE PHOSPHATASE 67 U/L (45-117); BILIRUBIN,TOTAL 0.7 mg/dL (0.2-1.0); CREATININE 1.26 mg/dL (0.7-1.3); TOTAL PROTEIN 6.5 g/dL (6.4-8.2)
[2020-05-04 06:35] LABS: MD YES
[2020-05-04 06:37] LABS: BAND#(MANUAL) 1.51 x10^3/uL; BANDS%(MANUAL) 7 % (0-7); BASOS#(MANUAL) 0.22 x10^3/uL (0-0.1); BASOS% (MANUAL) 1 % (0-1); LYMPHS% (MANUAL) 6 % (22-44); METAMYELOCYTES# (MANUAL) 0.22 x10^3/uL (0-0); METAMYELOCYTES% (MANUAL) 1 % (0-1); MONOS#(MANUAL) 0.65 x10^3/uL (0.3-2.7); MONOS% (MANUAL) 3 % (2-9); MYELOCYTES# (MANUAL) 0.43 x10^3/uL (0-0); MYELOCYTES% (MANUAL) 2 % (0-0); SEG#(MANUAL) 17.28 x10^3/uL (1.8-6.8); SEGS% (MANUAL) 80 % (42-75)
[2020-05-04 06:38] LABS: <PLATELET ESTIMATE> ADEQUATE; <PLT MORPHOLOGY> NORMAL PLT MORPH; ANISOCYTOSIS 1+
[2020-05-04 06:52] VITALS: BP 130/80
[2020-05-04] MEDS: ZINC SULFATE 220 MG CAPSULE PO SCH (08:04)
[2020-05-04] MEDS: CHOLECALCIFEROL 5,000u TAB PO SCH (08:04)
[2020-05-04] MEDS: LISINOPRIL 40 MG TABLET PO SCH ×2 (08:04→21:15)
[2020-05-04] MEDS: HYDROCHLOROTHIAZIDE 25 MG TABLET PO SCH (08:04)
[2020-05-04] MEDS: THIAMINE 100MG TABLET PO SCH (08:04)
[2020-05-04] MEDS: AMLODIPINE 10 MG TAB PO SCH (08:04)
[2020-05-04] MEDS: FAMOTIDINE 20 MG TABLET PO SCH ×3 (08:05→21:15)
[2020-05-04 11:58] VITALS: BP 158/88
[2020-05-04 21:10] VITALS: BP_SYST 182; BP_SYST 189; BP_DIAS 105; BP_DIAS 79
[2020-05-04] MEDS: MELATONIN 5 MG TABLET PO SCH (21:16)
[2020-05-04 22:23] VITALS: BP 158/81
[2020-05-05 00:59] VITALS: BP 145/80
[2020-05-05] MEDS: ENOXAPARIN 120MG/0.8ML SQ SCH ×2 (05:00→17:00)
[2020-05-05 05:49] LABS: MEAN CORPUSCULAR HEMOGLOBIN 27.2 pg (27.5-34.5); MEAN CORPUSCULAR HGB CONC 32.1 g/dL (33.2-36.2); MEAN CORPUSCULAR VOLUME 84.5 fL (81-97); MEAN PLATELET VOLUME 10.3 fL (7.4-10.4); PLATELET COUNT 201 x10^3/uL (130-400); RED BLOOD COUNT 5.82 x10^6/uL (4.38-5.82)
[2020-05-05 06:02] LABS: ALANINE AMINOTRANSFERASE 166 U/L (12-78); ALBUMIN 2.9 g/dL (3.4-5.0); ANION GAP 4 mmol/L (5-15); CALCIUM 8.6 mg/dL (8.5-10.1); CHLORIDE 103 mmol/L (98-107); CREATININE 1.02 mg/dL (0.7-1.3)
[2020-05-05 06:05] LABS: ALKALINE PHOSPHATASE 54 U/L (45-117); BILIRUBIN,TOTAL 0.6 mg/dL (0.2-1.0); TOTAL PROTEIN 6.1 g/dL (6.4-8.2)
[2020-05-05 06:38] LABS: MD YES
[2020-05-05 06:40] LABS: EOS#(MANUAL) 0.18 x10^3/uL (0.0-0.4); EOS% (MANUAL) 1 % (1-7); LYMPH#(MANUAL) 1.61 x10^3/uL (1-3.4); LYMPHS% (MANUAL) 9 % (22-44); METAMYELOCYTES# (MANUAL) 0.18 x10^3/uL (0-0); METAMYELOCYTES% (MANUAL) 1 % (0-1); MONOS#(MANUAL) 1.79 x10^3/uL (0.3-2.7); MONOS% (MANUAL) 10 % (2-9); SEG#(MANUAL) 14.14 x10^3/uL (1.8-6.8); SEGS% (MANUAL) 79 % (42-75)
[2020-05-05 06:41] LABS: <PLATELET ESTIMATE> ADEQUATE; <PLT MORPHOLOGY> NORMAL PLT MORPH; ANISOCYTOSIS 1+
[2020-05-05 08:36] VITALS: BP 139/91
[2020-05-05] MEDS: THIAMINE 100MG TABLET PO SCH (08:44)
[2020-05-05] MEDS: HYDROCHLOROTHIAZIDE 25 MG TABLET PO SCH (08:44)
[2020-05-05] MEDS: LISINOPRIL 40 MG TABLET PO SCH ×2 (08:44→21:29)
[2020-05-05] MEDS: ZINC SULFATE 220 MG CAPSULE PO SCH (08:44)
[2020-05-05] MEDS: FAMOTIDINE 20 MG TABLET PO SCH ×2 (08:44→21:29)
[2020-05-05] MEDS: CHOLECALCIFEROL 5,000u TAB PO SCH (08:44)
[2020-05-05] MEDS: AMLODIPINE 10 MG TAB PO SCH (08:44)
[2020-05-05 13:07] VITALS: BP 135/77
[2020-05-05] MEDS: MELATONIN 5 MG TABLET PO SCH (21:00)
[2020-05-05 21:24] VITALS: BP 156/78
[2020-05-05] MEDS: TRAZODONE 50MG TABLET PO PRN (21:33)
[2020-05-06 04:31] VITALS: BP 122/75
[2020-05-06] MEDS: ENOXAPARIN 120MG/0.8ML SQ SCH ×2 (05:00→17:00)
[2020-05-06 05:06] LABS: BASOPHILS # (AUTO) 0.06 x10^3/uL (0-0.1); BASOPHILS % (AUTO) 0 % (0-1); EOSINOPHILS # (AUTO) 0.15 x10^3/uL (0-0.4); EOSINOPHILS % (AUTO) 1 % (1-7); LYMPHOCYTES # (AUTO) 2.14 x10^3/uL (1-3.4); LYMPHOCYTES % (AUTO) 15 % (22-44); MD NO; MEAN CORPUSCULAR HEMOGLOBIN 27.6 pg (27.5-34.5); MEAN CORPUSCULAR HGB CONC 32.7 g/dL (33.2-36.2); MEAN CORPUSCULAR VOLUME 84.6 fL (81-97); MEAN PLATELET VOLUME 9.6 fL (7.4-10.4); MONOCYTES # (AUTO) 1.32 x10^3/uL (0.2-0.8); MONOCYTES % (AUTO) 9 % (2-9); NEUTROPHILS # (AUTO) 10.98 x10^3/uL (1.8-6.8); NEUTROPHILS % (AUTO) 75 % (42-75); PLATELET COUNT 180 x10^3/uL (130-400); RED BLOOD COUNT 5.82 x10^6/uL (4.38-5.82)
[2020-05-06 05:16] LABS: ALBUMIN 2.9 g/dL (3.4-5.0); ANION GAP 6 mmol/L (5-15); CHLORIDE 101 mmol/L (98-107)
[2020-05-06 05:19] LABS: ALANINE AMINOTRANSFERASE 143 U/L (12-78); ALKALINE PHOSPHATASE 66 U/L (45-117); BILIRUBIN,TOTAL 0.6 mg/dL (0.2-1.0); CREATININE 1.12 mg/dL (0.7-1.3); TOTAL PROTEIN 6.2 g/dL (6.4-8.2)
[2020-05-06 08:43] VITALS: BP 131/79
[2020-05-06] MEDS: FAMOTIDINE 20 MG TABLET PO SCH ×2 (08:48→20:06)
[2020-05-06] MEDS: CHOLECALCIFEROL 5,000u TAB PO SCH (08:48)
[2020-05-06] MEDS: THIAMINE 100MG TABLET PO SCH (08:48)
[2020-05-06] MEDS: AMLODIPINE 10 MG TAB PO SCH (08:48)
[2020-05-06] MEDS: ZINC SULFATE 220 MG CAPSULE PO SCH (08:48)
[2020-05-06] MEDS: HYDROCHLOROTHIAZIDE 25 MG TABLET PO SCH (08:48)
[2020-05-06] MEDS: LISINOPRIL 40 MG TABLET PO SCH ×2 (08:48→20:11)
[2020-05-06 13:00] VITALS: BP 134/66
[2020-05-06] MEDS: MELATONIN 5 MG TABLET PO SCH (20:05)
[2020-05-06 20:06] VITALS: BP 142/70
[2020-05-06] MEDS: TRAZODONE 50MG TABLET PO PRN (22:01)
[2020-05-07 00:08] VITALS: BP 133/71
[2020-05-07] MEDS: ENOXAPARIN 120MG/0.8ML SQ SCH (04:05)
[2020-05-07 04:56] LABS: BASOPHILS % (AUTO) 3 % (0-1); EOSINOPHILS # (AUTO) 0.19 x10^3/uL (0-0.4); EOSINOPHILS % (AUTO) 2 % (1-7); LYMPHOCYTES # (AUTO) 1.78 x10^3/uL (1-3.4); LYMPHOCYTES % (AUTO) 18 % (22-44); MD NO; MEAN CORPUSCULAR HEMOGLOBIN 27.7 pg (27.5-34.5); MEAN CORPUSCULAR HGB CONC 32.7 g/dL (33.2-36.2); MEAN CORPUSCULAR VOLUME 84.7 fL (81-97); MEAN PLATELET VOLUME 9.3 fL (7.4-10.4); MONOCYTES # (AUTO) 1.01 x10^3/uL (0.2-0.8); MONOCYTES % (AUTO) 10 % (2-9); NEUTROPHILS # (AUTO) 6.85 x10^3/uL (1.8-6.8); NEUTROPHILS % (AUTO) 68 % (42-75); PLATELET COUNT 162 x10^3/uL (130-400); RED BLOOD COUNT 5.41 x10^6/uL (4.38-5.82); RED CELL DISTRIBUTION WIDTH 17.7 % (9.4-14.8)
[2020-05-07 05:09] LABS: ALBUMIN 2.9 g/dL (3.4-5.0); ANION GAP 6 mmol/L (5-15); CALCIUM 8.4 mg/dL (8.5-10.1); CHLORIDE 105 mmol/L (98-107)
[2020-05-07 05:15] LABS: ALANINE AMINOTRANSFERASE 131 U/L (12-78); ALKALINE PHOSPHATASE 53 U/L (45-117); BILIRUBIN,TOTAL 0.5 mg/dL (0.2-1.0); CREATININE 0.97 mg/dL (0.7-1.3)
[2020-05-07 08:08] VITALS: BP 142/82
[2020-05-07] MEDS: AMLODIPINE 10 MG TAB PO SCH (08:23)
[2020-05-07] MEDS: FAMOTIDINE 20 MG TABLET PO SCH (08:23)
[2020-05-07] MEDS: THIAMINE 100MG TABLET PO SCH (08:23)
[2020-05-07] MEDS: ZINC SULFATE 220 MG CAPSULE PO SCH (08:23)
[2020-05-07] MEDS: HYDROCHLOROTHIAZIDE 25 MG TABLET PO SCH (08:23)
[2020-05-07] MEDS: CHOLECALCIFEROL 5,000u TAB PO SCH (08:23)
[2020-05-07] MEDS: LISINOPRIL 40 MG TABLET PO SCH (08:24)
[2020-05-07 12:17] VITALS: BP 139/81
[2020-05-07] MEDS ORDERED: RIVA10TA2 PO (12:26)
[2020-05-07] MEDS ORDERED: AMLO10TA8 PO (12:26)
== END 2020-05-07 14:15 | disposition home or self-care (01) | DRG 177 ==
LOC: ED 13:45 → EDIP 15:51 → 4EST 19:21 → 3N 04-23 21:48 → 4EST 05-07 11:00
PROVIDERS: ADMIT Emergency Medicine; ATTEND Internal Medicine
PROC: XW033E5 Introduction of Remdesivir Anti-infective into Peripheral Vein, Percutaneous Approach, New Technology Group 5 (ICD-10-PCS; principal; 2020-04-21)
PROC: 5A09557 Assistance with Respiratory Ventilation, Greater than 96 Consecutive Hours, Continuous Positive Airway Pressure (ICD-10-PCS; 2020-04-21)
PROC: XW033E5 Introduction of Remdesivir Anti-infective into Peripheral Vein, Percutaneous Approach, New Technology Group 5 (ICD-10-PCS; 2020-04-22)
PROC: XW033E5 Introduction of Remdesivir Anti-infective into Peripheral Vein, Percutaneous Approach, New Technology Group 5 (ICD-10-PCS; 2020-04-23)
PROC: XW033E5 Introduction of Remdesivir Anti-infective into Peripheral Vein, Percutaneous Approach, New Technology Group 5 (ICD-10-PCS; 2020-04-24)
PROC: XW033E5 Introduction of Remdesivir Anti-infective into Peripheral Vein, Percutaneous Approach, New Technology Group 5 (ICD-10-PCS; 2020-04-25)
DX: U07.1 COVID-19 (principal); J96.01 Acute respiratory failure with hypoxia; J12.89 Other viral pneumonia; K57.92 Diverticulitis of intestine, part unspecified, without perforation or abscess without bleeding; Z68.41 Body mass index [BMI] 40.0-44.9, adult; R79.89 Other specified abnormal findings of blood chemistry; D69.6 Thrombocytopenia, unspecified; E66.01 Morbid (severe) obesity due to excess calories; E88.09 Other disorders of plasma-protein metabolism, not elsewhere classified; G47.30 Sleep apnea, unspecified; I10 Essential (primary) hypertension; I27.20 Pulmonary hypertension, unspecified; J98.4 Other disorders of lung; D72.829 Elevated white blood cell count, unspecified; K76.0 Fatty (change of) liver, not elsewhere classified; G47.33 Obstructive sleep apnea (adult) (pediatric); M79.10 Myalgia, unspecified site; Z79.01 Long term (current) use of anticoagulants; Z90.49 Acquired absence of other specified parts of digestive tract; Z79.899 Other long term (current) drug therapy; Z88.0 Allergy status to penicillin; Z80.43 Family history of malignant neoplasm of testis
CPT/HCPCS: 36415; 71045; 76700; 80048; 80053; 80076; 82040; 82728; 83615; 83880; 84484; 85025; 85379; 85384; 85610; 85730; 86140; 87040; 87046; 87324; 87328; 87329; 87427; 87635; 89055; 93005; 93306; 93356; 96361; 96365; 96372; 96375; 99285; G0378; J0456; J0696; J1650; J0360; J7030; J7050